=== PATIENT | male | born 1970 | race African-American/Black ===

== ENCOUNTER 2021-12-06 12:56 | Emergency (ER) | payer MEDICAID ==
[~2021-12-06] VITALS: Ht 175.3 cm; Wt 80.0 kg
[2021-12-06 13:06] VITALS: BP 118/76
[2021-12-06] MEDS ORDERED: METOCLOPRAMIDE HCL 10MG/2ML VIAL IV ONE (13:15)
[2021-12-06] MEDS ORDERED: SODIUM CHLORIDE 0.9% 1,000 ML IV ONE (13:15)
== END 2021-12-06 14:54 | disposition left against medical advice (07) ==
LOC: ER 12:56
DX: R42 Dizziness and giddiness (principal); R51.9 Headache, unspecified; M54.2 Cervicalgia; E11.9 Type 2 diabetes mellitus without complications; E78.00 Pure hypercholesterolemia, unspecified; I10 Essential (primary) hypertension
CPT/HCPCS: 93005; 99283; J7030